=== PATIENT | female | born 1940 | race Caucasian/White ===

== ENCOUNTER 2023-04-10 06:55 | Outpatient (NON) | payer MEDICARE, SELFPAY ==
[2023-04-10 07:46] LABS: Basophils Absolute Auto 0.02 K/mm3 (0.00-0.10); Basophils Percent Auto 0.2 % (0.0-1.0); Eosinophils Absolute Auto 0.09 K/mm3 (0.02-0.50); Eosinophils Percent Auto 1.1 % (1.0-6.0); Hematocrit 29.4 % (35.0-42.0); Hemoglobin 9.2 g/dL (11.7-13.8); Immature Granulocyte Absolute 0.04 K/mm3 (0.00-0.00); Immature Granulocyte Percent A 0.5 % (0.0-0.0); Immature Platelet Fraction Pct 2.7 % (1.0-7.0); Lymphocytes Absolute Auto 2.25 K/mm3 (1.10-4.50); Lymphocytes Percent Auto 27.7 % (18.0-42.0); Mean Corpuscular HGB Conc 31.3 g/dL (32.0-36.0); Mean Corpuscular Hemoglobin 28.6 pg (27.0-31.0); Mean Corpuscular Volume 91.3 fL (78.0-102.0); Mean Platelet Volume 10.4 fl (9.2-11.8); Monocytes Absolute Auto 0.62 K/mm3 (0.10-0.90); Monocytes Percent Auto 7.6 % (2.0-11.0); Neutrophils Absolute Auto 5.1 K/mm3 (1.7-7.2); Neutrophils Percent Auto 62.9 % (50.0-70.0); Platelet Count Result 533 K/mm3 (150-420); Red Blood Count 3.22 M/mm3 (4.20-5.40); Red Cell Distribution Width 16.2 % (11.6-14.4); White Blood Count 8.1 K/mm3 (4.8-10.8)
[2023-04-10 07:57] LABS: Alanine Aminotransferase 18 U/L (14-59); Albumin Level 1.7 g/dL (3.4-5.0); Alkaline Phosphatase 90 U/L (46-116); Anion Gap 10 mmol/L (8-16); Aspartate Amino Transferase 19 U/L (15-37); Bilirubin,Total 0.3 mg/dL (0.00-1.00); Blood Urea Nitrogen 8 mg/dL (7-18); Calcium 7.8 mg/dL (8.5-10.1); Carbon Dioxide 29 mmol/L (21-32); Chloride 104 mmol/L (98-108); Estimated Glomerular Filt Rate > 60; Glucose 89 mg/dL (70-99); Osmolality Calculated 293 mOsm/kg (285-295); Sodium 143 mmol/L (136-145); Total Protein 4.9 g/dL (6.4-8.2)
[2023-04-10 08:03] LABS: Potassium 2.6 mmol/L (3.5-5.1)
[2023-04-10 13:31] LABS: Ferritin 226 ng/mL (8-252); Iron 13 ug/dL (50-170); Magnesium 1.5 mg/dL (1.8-2.4); Percent Iron Saturation 14 % (12-57)
== END 2023-04-10 06:56 | disposition home or self-care (01) ==
LOC: CHSLAB 06:57
PROVIDERS: Visit Provider Family Medicine
DX: G93.41 Metabolic encephalopathy (principal); R62.7 Adult failure to thrive; I50.9 Heart failure, unspecified; E11.9 Type 2 diabetes mellitus without complications
CPT/HCPCS: 36415; 80053; 82728; 83540; 83550; 83735; 85025; 85055

== ENCOUNTER 2023-04-13 06:53 | Outpatient (NON) | payer OTHER, MEDICARE, SELFPAY ==
[2023-04-13 08:02] LABS: Anion Gap 8 mmol/L (8-16); Blood Urea Nitrogen 13 mg/dL (7-18); Carbon Dioxide 31 mmol/L (21-32); Chloride 103 mmol/L (98-108); Estimated Glomerular Filt Rate > 60; Glucose 141 mg/dL (70-99); Magnesium 1.6 mg/dL (1.8-2.4); Osmolality Calculated 296 mOsm/kg (285-295); Potassium 3.1 mmol/L (3.5-5.1); Sodium 142 mmol/L (136-145)
[2023-04-21 11:39] LABS: Block/Specimen ID Not Given; CALR Exon 9 Mutation Not Detected (Not Detected); CSF3R Exon 14/17 Mutation Not Detected (Not Detected); JAK2 Exon 12 Mutation Not Detected (Not Detected); JAK2 V617F Mutation Not Detected (Not Detected); MPL Exon 10 Mutation Not Detected (Not Detected)
== END 2023-04-13 06:54 | disposition home or self-care (01) ==
LOC: CHSLAB 06:56
PROVIDERS: Visit Provider Family Medicine
DX: E11.9 Type 2 diabetes mellitus without complications (principal); R79.9 Abnormal finding of blood chemistry, unspecified; D75.1 Secondary polycythemia
CPT/HCPCS: 36415; 80048; 81219; 81270; 81279; 81339; 81479; 83735

== ENCOUNTER 2023-04-25 12:10 | Observation (INO) | payer OTHER, MEDICARE, SELFPAY ==
[2023-04-25] VITALS (17 sets, daily range): BP systolic 107–136; BP diastolic 51–75; PULSE 110–122; RESP 11–20; TEMP 36.1–36.9; O2SAT 80–97; BMI 21.2
--- NOTE | 2023-04-25 12:17 | ED.WOUNDLAC ---
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 She is on hospice at this time. [facility] is from [facility]. She has baseline dementia. Her dementia is moderate to severe. She is here with all over pain and specifically the coccyx area. Hospice could not get control of the pain so they sent her to the emergency room. They would like her admitted for pain control. Onset (ago): day(s) (1) Location: other ( Coccyx) Place: home Context: other ( bed-bound with decubitus ulcer; hospice patient) Associated symptoms: pain Treatments prior to arrival: other ( morphine not working at alf with hospice workers) Related Data Allergies Allergy/AdvReac Type Severity Reaction Status Date / Time TANVI Inhibitors Allergy Unknown Verified 04/25/23 12:44 denosumab [From Prolia] Allergy Unknown Verified 04/25/23 12:44 Review of Systems Review of Systems: All systems reviewed & are unremarkable except as noted in HPI and below Constitutional: Constitutional: Reports no additional constitutional complaints Eyes: Eyes: Reports no additional eye complaints ENT: Reports system reviewed and no additional complaints, except as documented Cardiovascular: Cardiovascular: Reports no additional cardiovascular complaints Respiratory: Respiratory: Reports no additional respiratory complaints Gastrointestinal: Gastrointestinal: Reports no additional gastrointestinal complaints Genitourinary: Genitourinary: Reports no additional female genitourinary complaints Musculoskeletal: Musculoskeletal: Reports no additional musculoskeletal complaints Integumentary/Breasts: Skin/Breast: Reports system reviewed and no additional complaints, except as docu Neurologic: Reports system reviewed and no additional complaints, except as documented Psychiatric: Psychiatric: Reports no additional psychiatric complaints Endocrine: Endocrine: Reports no additional endocrine complaints Hematologic/Lymphatic: Hematologic/Lymphatic: Reports no additional hematologic/lymphatic complaints Allergic/Immunologic: Allergic/Immunologic: Reports no additional allergic/immunologic complaints Exam Const: General: ill appearing Nutritional Appearance: thin Orientation/consciousness: confusion Limitations: altered mental status, behavioral limitations and other limitations ( moderate to severe dementia) HENMT: Head: normal to inspection Ears: external ears normal Face/Nose/Sinus: Normal external nose present Eyes: Conjunctivae: conjunctivae normal Pupils: Equal, round and reactive pupils present EOM: EOMs intact bilaterally Neck: Neck: normal visual inspection Chest: Chest palpation & inspection: normal inspection of the chest Resp: Effort & Inspection: normal respiratory effort and not labored Auscultation: clear to auscultation bilaterally and no crackles Cardio: Rate: regular rate Rhythm: regular rhythm Heart sounds: no murmurs GI: Inspection: non-distended GI Palp: Yes Soft to palpation, No Tenderness to palpation present (GI), No Guarding due to palpation present (GI) and No Rigid due to palpation Auscultation: normal bowel sounds Urinary Catheter: Urinary Catheter: patent and draining and urine cloudy Back/Spine/Pelvis: Back: no CVA tenderness Skin: General skin exam: normal color Rashes: no rashes Wounds: wounds noted Other: large heaped up edges 8 x 8 cm stage IV to the muscle layer decubitus ulcer on the coccyx area; healing appreciated; malodorous Neuro: General: No patient oriented x3, moves all extremities, no meningeal signs, no focal motor deficits and CN's II-XI intact bilaterally Speech: Abnormal speech present
[2023-04-25] MEDS: Please add drug allergy info to patient profile. 1 EACH XX (12:44)
[2023-04-25] MEDS: HYDROmorphone HCL INJ (*CRX) 2 MG/ML VIAL 0.5 MG IM (12:44)
[2023-04-25 12:46] LABS: Bilirubin Urine 1+ (Negative); Blood Urine 3+ (Negative); Glucose Urine UA Negative (Negative); Ketones Urine Trace (Negative); Leukocyte Esterase Ur 2+ LEU/UL (Negative); Nitrate Urine Negative (Negative); Protein Urine 2+ (Negative); Specific Grav Ur >= 1.030 (1.010-1.020)
[2023-04-25 13:03] LABS: Add Urine Microscopic? YES; Appearance Urine Turbid (Clear); Color Urine Dark Orange (Yellow); RBC Urine >100 /hpf (0-2); WBC Clumps Urine Present /hpf; WBC Urine >100 /hpf (0-3)
[2023-04-25 13:04] LABS: Bacteria Urine 4+ /hpf
[2023-04-25 13:18] LABS: SARS-CoV-2 RNA PCR Negative (Negative)
[2023-04-25 13:19] LABS: Influenza A QL RT-PCR Negative (Negative); Influenza B QL RT-PCR Negative (Negative); RSV RNA, RT-PCR Negative (Negative)
[2023-04-25] MEDS: levoFLOXacin 500 MG/D5W 100 ML 500 MG/100 ML BAG 100 MG IVPB (14:13)
--- NOTE | 2023-04-25 15:00 | ADMGEN ---
This patient, Teresa Singh, was admitted to 2nd Floor Room 207-1. Patient/family oriented to hospital policies and general routines including ID bracelet, bed and alarms, visiting hours, pain management, procedures, bathroom and other care routines, personal items, smoking policy, room service/diet, and visiting hours. Information on how to activate the Rapid Response Team has been discussed. Patient/Family are encouraged to report perceived risks to care and to ask questions if they do not understand what they are told or what they should do.
[2023-04-25 15:12] LABS: Anion Gap 4 mmol/L (8-16); Blood Urea Nitrogen 21 mg/dL (7-18); Carbon Dioxide 36 mmol/L (21-32); Chloride 108 mmol/L (98-108); Estimated CRCL calculation 62 ml/min; Estimated Glomerular Filt Rate > 60; Glucose 150 mg/dL (70-99); Osmolality Calculated 312 mOsm/kg (285-295); Sodium 148 mmol/L (136-145)
--- NOTE | 2023-04-25 15:12 | PC.NURSE ---
1505 pt to floor via stretcher per this rn. assisted to bed with 4 staff. all questions answered.
[2023-04-25 15:15] LABS: Basophils Absolute Auto 0.01 K/mm3 (0.00-0.10); Basophils Percent Auto 0.1 % (0.0-1.0); Eosinophils Absolute Auto 0.06 K/mm3 (0.02-0.50); Eosinophils Percent Auto 0.5 % (1.0-6.0); Hematocrit 32.9 % (35.0-42.0); Hemoglobin 9.7 g/dL (11.7-13.8); Immature Granulocyte Absolute 0.05 K/mm3 (0.00-0.00); Immature Granulocyte Percent A 0.4 % (0.0-0.0); Immature Platelet Fraction Pct 1.6 % (1.0-7.0); Lymphocytes Absolute Auto 1.82 K/mm3 (1.10-4.50); Lymphocytes Percent Auto 14.5 % (18.0-42.0); Mean Corpuscular HGB Conc 29.5 g/dL (32.0-36.0); Mean Corpuscular Hemoglobin 26.7 pg (27.0-31.0); Mean Corpuscular Volume 90.6 fL (78.0-102.0); Mean Platelet Volume 9.8 fl (9.2-11.8); Monocytes Absolute Auto 0.75 K/mm3 (0.10-0.90); Neutrophils Absolute Auto 9.9 K/mm3 (1.7-7.2); Neutrophils Percent Auto 78.5 % (50.0-70.0); Platelet Count Result 554 K/mm3 (150-420); Red Blood Count 3.63 M/mm3 (4.20-5.40); Red Cell Distribution Width 15.7 % (11.6-14.4); White Blood Count 12.6 K/mm3 (4.8-10.8)
[2023-04-25 15:21] LABS: Lactic Acid Reflex 0.6 mmol/L (0.4-2.0)
[2023-04-25] MEDS: MORPHINE SULFATE (*CRX) 2 MG/ML INJ IV PUSH ×2 (15:38→21:43)
[2023-04-25] MEDS: ONDANSETRON INJ 4 MG/2 ML VIAL IV PUSH (15:38)
[2023-04-25] MEDS: LORazepam (*CRX) 2 MG/ML 30 ML ORAL CONCENTRATE 1 MG SUBLINGUAL ×2 (17:07→23:10)
--- NOTE | 2023-04-25 23:55 | PC.NURSE ---
Dr. Mclaughlin notified of pt's low SAO2; Orders received for oxygen to keep SAO2 in the mid 90's.
--- NOTE | 2023-04-26 | PC.NURSE ---
Patient does not communicate but will grab hold of nurses hand when offered. Does not follow any directions. Yells out occassionally. T&P q 2 hours. SpO2 @ 80% when VS taken. O2 started @ 2 lpm/nc as ordered for comfort. Morphine and Ativan given to keep patient comfortable. Will continue to monitor.
[2023-04-26] MEDS: MORPHINE SULFATE (*CRX) 2 MG/ML INJ IV PUSH ×2 (05:39→07:39)
[2023-04-26] MEDS: LORazepam (*CRX) 2 MG/ML 30 ML ORAL CONCENTRATE 1 MG SUBLINGUAL (06:11)
--- NOTE | 2023-04-26 07:04 | PM.SD2 ---
Same Day Admit/Disch: HPI History of Present Illness Chief complaint: HOSPICE PAIN CONTROL UTI Narrative: Teresa Singh is a 82 [place] [address] Emergency Room Visit Note Signed Patient: Teresa Singh MR#: [id number] : 1940 Acct:[id number] Age: 82 ADM Date: 04/25/23 Loc: [facility] Attending Dr: cc: Remigio Posey MD; Ramone Mclaughlin MD~ HPI - Wound/Laceration General Chief Complaint: Wound/Laceration Stated Complaint: pain Time Seen by Provider: 04/25/23 12:16 Source: EMS and RN notes reviewed Mode of arrival: EMS Limitations: altered mental status and clinical condition History of Present Illness HPI narrative: ? 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 She is on hospice at this time.? [facility] She has baseline dementia.? Her dementia is moderate to severe.? She is here with all over pain and specifically the coccyx area.? Hospice could not get control of the pain so they sent her to the emergency room.? They would like her admitted for pain control. Onset (ago): day(s) (1) Location: other (? Coccyx) Place: home Context: other ( bed-bound with decubitus ulcer; hospice patient) Associated symptoms: pain Treatments prior to arrival: other ( morphine not working [facility] with hosp[facility] workers) [facility] Social History Social History Smoking status: Never smoker Alcohol intake: never Substance use: never Substance use type: does not use Spiritual care concerns: Yes (family contacting clergy of their choice) Same Day Admit/Disch: Med Pre-admit Medications Home Medications Medication Instructions Recorded Confirmed Type scopolamine base 1 mg over 3 days 1 patch transdermal Q3D PRN nausea 04/26/23 Rx transdermal patch and vomiting #4 ea Review of Systems Review of Systems pain , wound to buttocks All systems reviewed & are unremarkable except as noted in HPI and below DS: Data Data Completed and Pending Labs on day of discharge: Labs from last 24 hours 0104/25/23 04/25/23 14:36 12:19 12:16 WBC 12.6 H RBC 3.63 L Hgb 9.7 L Hct 32.9 L MCV 90.6 MCH 26.7 L MCHC 29.5 L RDW 15.7 H Plt Count 554 H MPV 9.8 Immature Gran % (Auto) 0.4 H Neut % (Auto) 78.5 H Lymph % (Auto) 14.5 L Christian % (Auto) 6.0 Eos % (Auto) 0.5 L Baso % (Auto) 0.1 Lymph # (Auto) 1.82 Christian # (Auto) 0.75 Eos # (Auto) 0.06 Baso # (Auto) 0.01 Abs Immat Gran (auto) 0.05 H Absolute Neuts (auto) 9.9 H Absolute Nucleated RBC 0.00 Nucleated RBC % 0.0 % Immature Plt Fraction 1.6 Sodium 148 H Potassium 3.0 L Chloride 108 Carbon Dioxide 36 H Anion Gap 4 L BUN 21 H Creatinine 0.44 L Estim Creat Clear Calc 62 Estimated GFR > 60 Glucose 150 H Calculated Osmolality 312 H Lactic Acid 0.6 Calcium 8.0 L Urine Color Dark orange Urine Appearance Turbid A Urine pH 6.0 Ur Specific Fletcher >= 1.030 H Urine Protein 2+ H Urine Glucose (UA) Negative Urine Ketones Trace H Ur Blood (Man) 3+ H Urine Nitrate Negative Urine Bilirubin 1+ H Urine Urobilinogen 1.0 Leukocyte Esterase Rfl 2+ H Urine RBC >100 H Urine WBC >100 Urine WBC Clumps Present H Urine Bacteria 4+ H Influenza A (RT-PCR) Negative Influenza B (RT-PCR) Negative RSV (RT-PCR) Negative SARS-CoV-2 RNA (RT-PCR) Negative DS: Summary Hospital Course Reason for hospitalization: Pain control, Wound Hospital Course: This is a frail 82 year old patient who [facility]. Patient has an extensive buttock wound down to the muscle not to sure its not to the
[2023-04-26] MEDS: SCOPOLAMINE 1 MG PATCH 1 PATCH TRANSDERM (07:38)
[2023-04-26 08:00] VITALS: BP 151/73; PULSE 114; RESP 14; TEMP 37.2; O2SAT 95
--- NOTE | 2023-04-26 10:56 | PC.NURSE ---
spoke with hospice nurse regarding dosing on morphine for return to [facility]. Transfered the nurse to pharmacy for clarification on what has been given in the last 24 hours. Spoke to care home regarding patient returning for comfort care.
--- NOTE | 2023-04-26 11:15 | PC.NURSE ---
Patient discharged back to halfway with O2 per nasal cannula, hanks catheter in place. Transported by [facility]. Patient not alert, cries out during repositioning but settles quickly. Facility notified patient en route
[2023-04-26 12:00] VITALS: O2SAT 97
== END 2023-04-26 11:15 | disposition hospice, inpatient (51) ==
LOC: CHSED 14:41 → CHS2ND 04-26 07:08
PROVIDERS: Admitting Provider Internal Medicine; Emergency Provider Emergency Medicine; PCP Family Medicine; Visit Provider Internal Medicine
DX: L89.154 Pressure ulcer of sacral region, stage 4 (principal); R52 Pain, unspecified; N39.0 Urinary tract infection, site not specified; R62.7 Adult failure to thrive; Z68.21 Body mass index [BMI] 21.0-21.9, adult; F03.C0 Unspecified dementia, severe, without behavioral disturbance, psychotic disturbance, mood disturbance, and anxiety; Z74.01 Bed confinement status; Z20.822 Contact with and (suspected) exposure to COVID-19; Z99.3 Dependence on wheelchair
CPT/HCPCS: 36415; 80048; 81001; 83605; 85025; 85055; 87040; 87070; 87086; 87088; 87147; 87205; 87637; 96365; 96374; 96375; 96376; 99285; A9270; G0378; J1170; J1956; J2270; J2405